=== PATIENT | female | born 1955 | race Caucasian/White ===

== ENCOUNTER 2024-02-10 23:18 | Emergency (ER) | payer OTHER, SELFPAY ==
[2024-02-10 23:23] VITALS: BP 171/87
[2024-02-10 23:42] VITALS: BMI 40.0
[2024-02-11 01:08] VITALS: BP 159/81
--- NOTE | 2024-02-11 03:11 | ED.GENMED ---
History of Present Illness
General
Chief Complaint: Wound Check/Suture Removal
Source: patient
Exam Limitations: none
Time Seen by Provider: 02/11/24 00:10
Nursing documentation reviewed up to this point in time: agreed with
Travel History
Have you had any contact with someone who has COVID-19?: No
Do you have any symptoms of coronavirus? Fever > 100 degrees, chills, cough, shortness of breath, sore throat, loss of taste or smell, muscle aches, or headache?: No
History of Present Illness
History of Present Illness:
68-year-old female with history as documented who had a recent right wrist injury presents for evaluation of cast issue. Patient had a wrist injury and was seen by Dr. Herrera in the office yesterday and was casted on her right wrist. She says that
tonight the cast felt like it was 'too tight' and show she removed at home. She arrives with a cast off of her wrist. She denies any wrist pain at present. She denies any other issues today.
Past History
Past History
ED Past Medical History: HTN
ED Past Surgical History: Cholecystectomy
Social History
Tobacco: Non-smoker
Alcohol: None
Drug: None
Personal: Partner
Living: with family
Employment: Employed
Family History
Family History: Negative Sudden
Review of Systems
Review of Systems
All Other Systems: ROS reviewed and negative except as documented in HPI and ROS
Musculoskeletal: Reports other (Cast issue)
Phy Exam
Physical Exam
Physical Exam:
General: Well appearing and non-toxic
HEENT: protecting airway
Neck: appears supple
CV: No evidence of cyanosis
Resp: No accessory muscle use
Abd: Non-distended
Extremities: No deformities, mild tenderness over the distal radius on the right lower wrist, strong right radial pulse, no edema in the right upper extremity and really no marked swelling of the right wrist
Neuro: Alert
Psych: Normal affect
Skin: Intact
Scores
Heart Failure Risk
Heart Failure Risk Score: Not Applicable
Heart Score for Chest Pain Patients
STEMI patient?: Not applicable
Withdrawal Assessment of Alcohol
Withdrawal Assessment Completed?: Not applicable
Course
Vital Signs
Initial and Last Documented VS:
Initial Vital Signs
Temp Pulse Resp BP Pulse Ox
36.5 C 67 18 171/87 99
02/10/24 23:23 02/10/24 23:23 02/10/24 23:23 02/10/24 23:23 02/10/24 23:23
Last Documented Vital Signs
Temp Pulse Resp BP Pulse Ox
36.5 C 60 18 159/81 97
02/10/24 23:23 02/11/24 01:08 02/11/24 01:08 02/11/24 01:08 02/11/24 01:08
MDM/Problems Addressed
Differential Diagnosis Includes:
Cast issue
MDM/Problems Addressed:
68-year-old female who had a recent wrist injury and was casted by Dr. Herrera in the office yesterday presents tonight because the cast felt too tight. Apparently she still had them in triage but by the time my assessment she had already removed it
herself. Will place in a splint and have her follow-up with hand surgery.
Acute Exacerbation and/or Progression of Chronic Illness:
Acutely hypertensive with no signs or symptoms of hypertensive emergency�no emergent indication for antihypertensives at present
Acute Exacerbation and/or Progression of Chronic Illness: HTN
*Radiology
Radiology exam reviewed: radiology read reviewed (Review x-ray done previously 02/08/2024)
*Pulse Oximetry
Patient hypoxic: no
*Critical Care Note
Total Time (30-74mins, 75-104mins- exclusive of procedures): Not Applicable
Data Reviewed
Source: patient
ED Attending Note
-
Portions of this chart may have been created with voice recognition software.� Occasional wrong word or��sound alike� substitutions may have occurred due to the inherent limitations of voice recognition software.
Discharge Plan
Departure
Patient Disposition: Home (Routine Discharge)
Date of Disposition: 02/11/24
Time of Disposition: 00:38
Patient with high blood pressure during this ER visit?: Yes
Discharge Problem:
Cast discomfort
Instructions: Splint Care ED
Prescriptions:
No Action
omeprazole 20 MG capsule,delayed release(DR/EC)
20 mg PO DAILY
magnesium oxide 500 MG capsule
500 mg PO DAILY
cyanocobalamin (vitamin B-12) 1,000 MCG tablet
100 mcg PO DAILY
propranolol 10 MG tablet
10 mg PO DAILY PRN (Reason: tremors)
desvenlafaxine succinate [Pristiq] 50 MG tablet extended release 24 hr
50 mg PO DAILY
trazodone 50 MG tablet
50 mg PO HS PRN (Reason: insomnia)
ropinirole 0.25 MG tablet
0.25 mg PO HS PRN (Reason: restless legs)
Referrals:
Neftali Herrera MD [Active] - Call in 1-3 days for appt
Shruthi Barnes MD [Family Provider] -
Activity Restrictions/Additional Instructions:
Thank you for visiting the Emergency Department at [facility].
1. Please schedule a follow up appointment as directed. Call first thing tomorrow morning to make an appointment.
2. If indicated, please take your medications as instructed and indicated on discharge paperwork.
3. If any of your symptoms do not improve, or persist, or become more severe within 6-12 hours, please return to the emergency department for further care.
4. Please return to the emergency department if you develop a headache, neck pain/stiffness, fever greater than 100.4F, chest pain, shortness of breath, persistent nausea, vomiting, slurred speech, difficulty walking, numbness/tingling, weakness,
signs of infection or any other symptoms that are worrisome to you.
Please call [phone] if you have any questions.
Interventions
Interventions:
*Risk Screen - Suicide Last Done: 02/10/24 23:42
*General Assessment Last Done: 02/10/24 23:42
*Neglect/Abuse Screening Last Done: 02/10/24 23:42
ED- Fall Risk Assessment Last Done: 02/10/24 23:42
*ED COVID-19 Vaccine History Last Done: 02/10/24 23:42
*Nursing Disposition Last Done: 02/11/24 01:10
ED-Skin Assessment Last Done: 02/10/24 23:42
Discharge Date and Time
Discharge Date/Time: 02/11/24 01:15
Print Language: THAI
== END 2024-02-11 01:15 | disposition home or self-care (01) ==
LOC: EMR 23:18
PROVIDERS: EMERGENCY PHYSICIAN Emergency Medicine; FAMILY PHYSICIAN Family Medicine
DX: Z76.89 Persons encountering health services in other specified circumstances (principal); Y84.8 Other medical procedures as the cause of abnormal reaction of the patient, or of later complication, without mention of misadventure at the time of the procedure; Y79.8 Miscellaneous orthopedic devices associated with adverse incidents, not elsewhere classified; I10 Essential (primary) hypertension; Z90.49 Acquired absence of other specified parts of digestive tract
CPT/HCPCS: 99283; 29125

== ENCOUNTER → 2025-08-19 09:20 | Outpatient (REF) | payer OTHER, SELFPAY | LOC: HWWDC 09:20 | PROVIDERS: ATTENDING PHYSICIAN Family Medicine | DX: Z12.31 Encounter for screening mammogram for malignant neoplasm of breast (principal) | CPT/HCPCS: 77063; 77067 ==